=== PATIENT | female | born 1995 | race Caucasian/White ===

== ENCOUNTER 2019-08-17 14:48 | Observation (INO) | payer MEDICAID ==
[~2019-08-17] VITALS: Ht 149.9 cm; Wt 46.7 kg
[2019-08-17 15:48] LABS: Basophils # (auto) 0.1 10 ^3/uL (0-0.2); Basophils % (auto) 0.5 % (0.0-2.0); Eosinophils # (auto) 0 10 ^3/uL (0-0.8); Eosinophils % (auto) 0.2 % (0.0-7.0); Hematocrit 41.3 % (36.0-46.0); Hemoglobin 14.3 g/dL (12.2-16.2); Lymphocytes # (auto) 1.3 10 ^3/uL (0.4-5.4); Lymphocytes % (auto) 12.7 % (10.0-50.0); Mean Corpuscular Hemoglobin 30.1 pg (28.0-32.0); Mean Corpuscular Hgb Conc. 34.6 g/dL (32.0-36.0); Mean Corpuscular Volume 86.9 fL (80.0-100.0); Monocytes # (auto) 0.6 10 ^3/uL (0-1.3); Neutrophils # (auto) 8.4 10 ^3/uL (1.6-8.6); Neutrophils % (auto) 80.6 % (37.0-80.0); Platelet Count (auto) 238 10^3/uL (140-450); Red Blood Cells 4.76 10^6/uL (4.0-5.20); Red Cell Distribution Width 13.9 % (11.8-14.3); White Blood Cell 10.4 10^3/uL (4.4-10.8)
[2019-08-17 15:49] LABS: Urine Bacteria NONE SEEN /hpf (None Seen); Urine Blood Negative /uL (Negative); Urine Mucus FEW (None Seen); Urine Specific Gravity 1.011 (1.001-1.035); Urine Sperm PRESENT /hpf (None Seen); Urine WBC 3 /hpf (0 - 5)
[2019-08-17 16:05] LABS: Calcium 8.6 mg/dL (8.5-10.1); Potassium 3.8 mmol/L (3.5-5.1)
[2019-08-17] MEDS ORDERED: LACTATED RINGER'S 1,000 ML IV ONE (16:05)
[2019-08-17 16:07] LABS: Alcohol, Urine < 3.0 mg/dL (0-5); Amphetamine Screen, Urine NEGATIVE (NEGATIVE); Barbiturate Scree,Urine NEGATIVE (NEGATIVE); Benzodiazephine Screen, Urine NEGATIVE (NEGATIVE); Cannabinoid Screen, Urine NEGATIVE (NEGATIVE); Cocaine Screen, Urine NEGATIVE (NEGATIVE); Opiate Scree,Urine NEGATIVE (NEGATIVE); Phencyclidine Screen, Urine NEGATIVE (NEGATIVE)
[2019-08-17 16:08] LABS: Albumin 1.9 g/dL (3.4-5.0); BUN/Creatinine Ratio 11.5
[2019-08-17 16:10] LABS: Bilirubin, Total 0.3 mg/dL (0.2-1.0)
[2019-08-17] MEDS ORDERED: PREN-153 OR (16:11)
[2019-08-17] MEDS ORDERED: TERBUTALINE SULFATE 1 MG/ML 1ML VIAL SC SCH (16:15)
[2019-08-18 07:06] LABS: RPR Non Reactive (Non Reactive)
== END 2019-08-17 18:16 | disposition home or self-care (01) | DRG 566 ==
LOC: LDRP 14:48
PROVIDERS: ADMIT Specialist; ATTEND Specialist
DX: O13.3 Gestational [pregnancy-induced] hypertension without significant proteinuria, third trimester (principal); O62.9 Abnormality of forces of labor, unspecified; Z3A.35 35 weeks gestation of pregnancy
CPT/HCPCS: 36415; 59025; 76805; 76818; 80053; 80307; 81001; 81002; 84550; 85025; 86592; 87081; 96372; G0378; J3105; 96361; 96365

== ENCOUNTER 2019-08-19 11:55 | Observation (INO) | payer MEDICAID ==
[~2019-08-19] VITALS: Ht 149.9 cm; Wt 47.6 kg
[~2019-08-19 11:55] MED LIST: PREN-153 OR
[2019-08-19] MEDS ORDERED: TERBUTALINE SULFATE 1 MG/ML 1ML VIAL SC ONE (13:15)
== END 2019-08-19 14:10 | disposition home or self-care (01) | DRG 566 ==
LOC: LDRP 11:55
PROVIDERS: ADMIT Specialist; ATTEND Specialist
DX: O13.3 Gestational [pregnancy-induced] hypertension without significant proteinuria, third trimester (principal); O60.03 Preterm labor without delivery, third trimester; Z3A.35 35 weeks gestation of pregnancy
CPT/HCPCS: 59025; 81002; 84156; 87086; 96372; G0378; J3105

== ENCOUNTER 2019-08-20 13:52 | Observation (INO) | payer MEDICAID | END 2019-08-20 16:00 | disposition home or self-care (01) | DRG 566 | LOC: LDRP 13:52 | PROVIDERS: ADMIT Obstetrics & Gynecology; ATTEND Obstetrics & Gynecology | DX: O13.3 Gestational [pregnancy-induced] hypertension without significant proteinuria, third trimester (principal); O60.03 Preterm labor without delivery, third trimester; Z91.040 Latex allergy status; Z3A.35 35 weeks gestation of pregnancy | CPT/HCPCS: 59025; 76818; 81002; G0378 ==

== ENCOUNTER 2019-08-23 16:13 | Observation (INO) | payer MEDICAID | END 2019-08-23 17:57 | disposition home or self-care (01) | DRG 566 | LOC: LDRP 16:13 | PROVIDERS: ADMIT Specialist; ATTEND Specialist | DX: O13.3 Gestational [pregnancy-induced] hypertension without significant proteinuria, third trimester (principal); Z3A.36 36 weeks gestation of pregnancy | CPT/HCPCS: 59025; 76818; 81002; G0378 ==

== ENCOUNTER 2022-05-08 13:25 | Inpatient (IN) | payer MEDICAID ==
[~2022-05-08] VITALS: Ht 149.9 cm; Wt 46.3 kg
[~2022-05-08 13:25] MED LIST changes: -PREN-153 OR; +PREN1TAB71 OR
[2022-05-08] MEDS ORDERED: LIDOCAINE 2%HCL (LOCAL ANESTH.) INJ 20ML MDV ONE (13:59)
[2022-05-08] MEDS ORDERED: METHYLERGONOVINE MALEATE 0.2 MG/ML AMP IM ONE (14:00)
[2022-05-08] MEDS ORDERED: LACT. RINGERS/OXYTOCIN 20UNITS 500 ML IV ONE ×2 (14:00→14:30)
[2022-05-08] MEDS ORDERED: WITCH HAZEL-GLYCERIN PAD TOP ONE (14:05)
[2022-05-08] MEDS ORDERED: DERMOPLAST 60ML BOTTLE TOP ONE (14:05)
[2022-05-08] MEDS ORDERED: ONDANSETRON ODT 4 MG TAB PO PRN (14:15)
[2022-05-08] MEDS ORDERED: DERMOPLAST 60ML BOTTLE TOP PRN (14:15)
[2022-05-08] MEDS ORDERED: PHISODERM TOP SOLN 240ML BTL TOP PRN (14:15)
[2022-05-08] MEDS ORDERED: PROMETHAZINE HCL 25 MG/ML 1ML IV PRN (14:15)
[2022-05-08] MEDS ORDERED: LACTATED RINGER'S 1,000 ML IV SCH (14:15)
[2022-05-08] MEDS ORDERED: LIDOCAINE 2%HCL (LOCAL ANESTH.) INJ 10ml MDV IJ PRN (14:15)
[2022-05-08] MEDS ORDERED: ACETAMINOPHEN 325 MG TAB PO PRN (14:15)
[2022-05-08] MEDS ORDERED: WITCH HAZEL-GLYCERIN PAD TOP PRN (14:15)
[2022-05-08] MEDS ORDERED: BUTORPHANOL TARTRATE 2 MG/1 ML VIAL IV PRN ×2 (14:15)
[2022-05-08 15:08] LABS: Basophils # (auto) 0 10 ^3/uL (0-0.2); Basophils % (auto) 0.1 % (0.0-2.0); Eosinophils # (auto) 0 10 ^3/uL (0-0.8); Hematocrit 33.9 % (36.0-46.0); Hemoglobin 11.1 g/dL (12.2-16.2); Lymphocytes # (auto) 0.8 10 ^3/uL (0.4-5.4); Lymphocytes % (auto) 5.5 % (10.0-50.0); Mean Corpuscular Hemoglobin 26.7 pg (28.0-32.0); Mean Corpuscular Hgb Conc. 32.9 g/dL (32.0-36.0); Mean Corpuscular Volume 81.1 fL (80.0-100.0); Monocytes % (auto) 6.8 % (0.0-12.0); Neutrophils # (auto) 13.3 10 ^3/uL (1.6-8.6); Neutrophils % (auto) 87.6 % (37.0-80.0); Red Blood Cells 4.18 10^6/uL (4.0-5.20); Red Cell Distribution Width 16.2 % (11.8-14.3); White Blood Cell 15.1 10^3/uL (4.4-10.8)
[2022-05-08 15:20] LABS: Albumin 1.8 g/dL (3.4-5.0); BUN/Creatinine Ratio 13.1; Calcium 8.6 mg/dL (8.5-10.1); Potassium 4.1 mmol/L (3.5-5.1)
[2022-05-08 15:23] LABS: Bilirubin, Total 0.5 mg/dL (0.2-1.0); Total Protein 6.4 g/dL (6.4-8.2)
[2022-05-08] MEDS ORDERED: OXYTOCIN 10UNIT/ML 1ML VIAL IV ONE (15:36)
[2022-05-08 15:39] LABS: INR 0.92 (0.9-1.15); Partial Thromboplastin Time 23.8 sec (24.6-33.4)
[2022-05-08] MEDS ORDERED: IBUPROFEN 800 MG TAB PO SCH (18:00)
[2022-05-08 19:00] VITALS: BP 120/80
[2022-05-08 19:12] LABS: Urine Bacteria NONE SEEN /hpf (None Seen); Urine Blood 3+ /uL (Negative); Urine Specific Gravity 1.012 (1.001-1.035); Urine WBC 10 /hpf (0 - 5)
[2022-05-08 19:23] LABS: Alcohol, Urine < 3.0 mg/dL (0-10); Amphetamine Screen, Urine NEGATIVE (NEGATIVE); Barbiturate Scree,Urine NEGATIVE (NEGATIVE); Benzodiazephine Screen, Urine NEGATIVE (NEGATIVE); Cannabinoid Screen, Urine NEGATIVE (NEGATIVE); Cocaine Screen, Urine NEGATIVE (NEGATIVE); Opiate Scree,Urine NEGATIVE (NEGATIVE); Phencyclidine Screen, Urine NEGATIVE (NEGATIVE)
[2022-05-08] MEDS ORDERED: IBUPROFEN 600 MG TAB PO PRN (20:45)
[2022-05-08] MEDS ORDERED: RHO (D) IMMUNE GLOBULIN 300 MCG INJ IM ONE (22:00)
[2022-05-08] MEDS ORDERED: DOCUSATE SOD 100 MG CAP PO SCH (22:00)
[2022-05-08 23:00] VITALS: BP 103/72
[2022-05-09 03:28] VITALS: BP 98/70
[2022-05-09 07:00] VITALS: BP 108/67
[2022-05-11 07:07] LABS: RPR Non Reactive (Non Reactive)
== END 2022-05-09 12:50 | disposition home or self-care (01) | DRG 560 ==
LOC: LDRP 13:25
PROVIDERS: ADMIT Obstetrics & Gynecology; ATTEND Obstetrics & Gynecology
PROC: 10E0XZZ Delivery of Products of Conception, External Approach (ICD-10-PCS; principal; 2022-05-08)
PROC: 0KQM0ZZ Repair Perineum Muscle, Open Approach (ICD-10-PCS; 2022-05-08)
DX: O60.14X0 Preterm labor third trimester with preterm delivery third trimester, not applicable or unspecified (principal); Z37.0 Single live birth; O34.211 Maternal care for low transverse scar from previous cesarean delivery; O69.81X0 Labor and delivery complicated by cord around neck, without compression, not applicable or unspecified; Z20.822 Contact with and (suspected) exposure to COVID-19; Z3A.36 36 weeks gestation of pregnancy; Z88.0 Allergy status to penicillin; O70.1 Second degree perineal laceration during delivery
CPT/HCPCS: 36415; 59025; 59409; 59612; 80053; 80307; 81001; 85025; 85610; 85730; 86592; 86850; 86870; 86900; 86901; 87426; 90384; 94760; 96360; 96361; 96366; 96372; G0378; J2590